=== PATIENT | female | born 1985 | race African-American/Black ===

== ENCOUNTER → 2017-04-25 06:39 | Emergency (ER) | payer MEDICAID ==
[~2017-04-25 06:39] MED LIST: metroNIDAZOLE TAB* 250 MG PO ONE
[2017-04-25 06:51] VITALS: BP 126/82
--- NOTE | 2017-04-25 18:15 | ED ---
Gemini Hong SooYoung, scribed for Dale Allen MD on 04/25/17 at 0818 . GI/ HPI - HPI Summary HPI Summary: A 31 y/o F presents to ED with c/o vaginal discomfort onset two days. Associated sx: vaginal discharge and irritation, dysuria, odorous urine, mild suprapubic abd pain. She states she's had prev yeast infections, but that these sx feel different. LN: 04/07/17. PSHx: Tubal ligation. - History of Current Complaint Chief Complaint: EDVaginalBleeding Time Seen by Provider: 04/25/17 07:48 Stated Complaint: VAG ODOR DISCHARGE Hx Obtained From: Patient Onset/Duration: Started Days Ago, Still Present Timing: Constant Severity: Mild Current Severity: Mild Pain Intensity: 0 - out of 10 Associated Signs and Symptoms: Positive: Discharge - vaginal, Dysuria, Abdominal Pain, Other: - pos: vaginal irritation,odorous urine - Allergy/Home Medications Allergies/Adverse Reactions: Allergies Allergy/AdvReac Type Severity Reaction Status Date / Time Latex AdvReac Rash Verified 04/25/17 06:51 Penicillins AdvReac Hives Verified 04/25/17 06:51 PMH/Surg Hx/FS Hx/Imm Hx Previously Healthy: Yes GI History: Denies: Hx Jaundice Sensory History: Denies: Hx Legally Blind Opthamlomology History: Denies: Hx Legally Blind EENT History: Denies: Hx Deafness Infectious Disease History: No Infectious Disease History: Denies: Traveled Outside the [place] in Last 30 Days - Family History Known Family History: Positive: Hypertension, Diabetes Negative: Cardiac Disease - Social History Occupation: Unemployed - OTHER Lives: With Family Alcohol Use: None Hx Substance Use: No Substance Use Type: Reports: None Hx Tobacco Use: No Smoking Status (MU): Never Smoked Tobacco Review of Systems Positive: Abdominal Pain - mild suprapubic Positive: dysuria, discharge, other - vaginal irritation, odorous urine All Other Systems Reviewed And Are Negative: Yes Physical Exam - Summary Physical Exam Summary: 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 External genitalia: within normal limits. No rashes, lesions or ecchymosis. Speculum exam: vaginal harris with no lesions, masses, or rashes. Cervix normal, but positive for yellow discharge. No CMTs. No adnexal masses. All cultures were collected and send to the lab. VITAL SIGNS: Reviewed. GENERAL: Patient is a well-developed and nourished female who is lying comfortable in the stretcher. Patient is not in any acute respiratory distress. HEAD AND FACE: Normocephalic and atraumatic. EYES: PERRLA, EOMI x 2, No injected conjunctiva. EARS: Hearing grossly intact. Ear canals and tympanic membranes are WNL. MOUTH: Oropharynx within normal limits. NECK: Supple, trachea is midline, no adenopathy, no JVD. CHEST: Symmetric, no tenderness at palpation LUNGS: Clear to auscultation bilaterally. No wheezing or crackles. CVS: RRR, S1 and S2 present, no murmurs or gallops appreciated. ABDOMEN: Soft, non-tender. No signs of distention. Positive bowel sounds. No rebound, no guarding, and no masses palpated. No abdominal bruit or pulsations. EXTREMITIES: FROM in all major joints, no edema, no cyanosis or clubbing. NEURO: Alert and oriented x 3. No acute neurological deficits. Speech is normal. SKIN: Dry and warm Triage Information Reviewed: Yes Vital Signs On Initial Exam: Initial Vitals Temp Pulse Resp BP Pulse Ox 99 F 90 15 126/82 100 04/25/17 06:48 04/25/17 06:48 04/25/17 06:48 04/25/17 06:48 04/25/17 06:48 Vital Signs Reviewed: Yes - Ogden Coma Scale Coma Scale Total: 15 Diagnostics - Vital Signs Vital Signs Temp Pulse Resp BP Pulse Ox 04/25/17 06:48 99 F 90 15 126/82 100 - Laboratory Lab Statement: Any lab studies that have been ordered have been reviewed, and results considered in the medical decision making process. GIGU Course/Dx - Course Course Of Treatment: A 31 y/o F presents to ED with c/o vaginal discomfort onset two days. Associated sx: vaginal discharge and irritation, dysuria, odorous urine, mild suprapubic abd pain. She states she's had prev yeast infections, but that these sx feel different. LN: 04/07/17. PSHx: Tubal ligation. Pelvic exam reveals yellow discharge. She does not have CMT. I did send cultures for gonorrhea and chlamydia, trich and Gardnerella. I offered pt to be treated for STDs, she will wait until she gets results of GC. However, she accepted to be treated for Gardnerella. Was given Flagyl in ED. Will be D/C home with 7 days of Flagyl, f/u with PCP for cultures. I discussed all the findings and test results with the patient. Patient was instructed to return to the emergency room immediately if any of the symptoms return or worsens. They were explained the possibility of an early abdominal pathology which was not detected at this time despite the physical exam and testing. They understand and agree. Abdominal exam before discharge: Soft, NT. No signs of distention. BS present. No rebound no guarding, and no masses palpated. Patient is alert and oriented and hemodynamically stable. Patient is to follow up with primary care physician in the next 2 to 3 days. Patient agree and understands. - Diagnoses Differential Diagnoses - Female: Pelvic Inflammatory Disease, STD Provider Diagnoses: Vaginal discharge, Gardnerella vaginalis infection Discharge - Discharge Plan Condition: Stable Disposition: HOME Prescriptions: Metronidazole [Flagyl 500 MG TAB] 500 mg PO TID #21 tab Patient Education Materials: Metronidazole (By mouth), Vaginal Discharge (ED) Referrals: No Primary Care Phys,NOPCP [Primary Care Provider] - [facility] [place] [Outside] Additional Instructions: Follow up with your primary care provider for culture results. Please return to the ED if you experience new or worsening symptoms. The documentation as recorded by the Gemini carter SooYoung accurately reflects the service I personally performed and the decisions made by me, Dale Allen MD.
== END | disposition home or self-care (01) ==
LOC: ED 06:39
DX: B96.89 Other specified bacterial agents as the cause of diseases classified elsewhere (principal); N89.8 Other specified noninflammatory disorders of vagina
CPT/HCPCS: 87480; 87491; 87510; 87591; 87661; 99282; A9270-GY

== ENCOUNTER 2017-07-03 15:03 | Emergency (ER) | payer MEDICAID, OTHER ==
[2017-07-03 15:28] VITALS: BP 118/75
--- NOTE | 2017-07-03 15:48 | RAD ---
HISTORY: Left hand pain COMPARISONS: None VIEWS: 4, Frontal, lateral, and oblique views of the left hand FINDINGS: BONE DENSITY: Normal. BONES: There is no displaced fracture. JOINTS: There is no arthropathy. ALIGNMENT: There is no dislocation. SOFT TISSUES: Unremarkable. OTHER FINDINGS: None. IMPRESSION: NO ACUTE OSSEOUS INJURY. IF SYMPTOMS PERSIST, RECOMMEND REPEAT IMAGING.
--- NOTE | 2017-07-03 17:12 | UC ---
Dario Hong Nilda, scribed for Reginald Gaviria MD on 07/03/17 at 1539 . Hand/Wrist HPI - HPI Summary HPI Summary: This patient is a 31 year old F [place] [facility] [place] a chief complaint of severe left hand pain since yesterday morning. The patient rates the sharp, throbbing pain 8/10 in severity. Symptoms aggravated by movement, and alleviated by rest. Patient reports limited ROM of left hand. She states her left hand is colder than her right hand. Patient denies recent trauma to hand and abnormal ROM of left wrist. She states she does not have abnormally cold extremities when temperatures become colder. She is right handed. 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 No PMHx blood clots or lymphadenopathy. - History Of Current Complaint Chief Complaint: UCUpperExtremity Stated Complaint: SWOLLEN HAND Time Seen by Provider: 07/03/17 15:26 Hx Obtained From: Patient Hx Last Menstrual Period: 06/18/2017 Onset/Duration: Sudden Onset, Lasting Days, Still Present Severity Currently: Severe Pain Intensity: 8 Pain Scale Used: 0-10 Numeric Character Of Pain: Sharp, Throbbing Aggravating Factor(s): Movement, Flexion, Extension Alleviating Factor(s): Rest Associated Signs And Symptoms: Positive: Other - limited ROM of left hand. She states her left hand is colder than her right hand. Patient denies recent trauma to hand and abnormal ROM of left wrist. - Allergies/Home Medications Allergies/Adverse Reactions: Allergies Allergy/AdvReac Type Severity Reaction Status Date / Time Shellfish Allergy Allergy Hives Verified 07/03/17 15:18 Latex AdvReac Rash Verified 07/03/17 15:18 Penicillins AdvReac Hives Verified 07/03/17 15:18 Home Medications: Home Medications Ibuprofen [Advil] 600 mg PO Q8HR PRN 07/03/17 [History Confirmed 07/03/17] PMH/Surg Hx/FS Hx/Imm Hx Previously Healthy: Yes Cardiovascular History: Other Other Cardiovascular History: negative blood clots - Surgical History Surgical History: Yes Surgery Procedure, Year, and Place: D&C. Tubal ligation 2011 - Family History Known Family History: Positive: Hypertension, Diabetes Negative: Cardiac Disease - Social History Occupation: Employed Full-time Lives: With Family Alcohol Use: None Substance Use Type: None Smoking Status (MU): Never Smoked Tobacco Review of Systems Motor: Decreased ROM - left hand Musculoskeletal: Other: - left hand pain, left hand colder than right; negative recent trauma to hand, abnormal ROM of left wrist All Other Systems Reviewed And Are Negative: Yes Physical Exam Triage Information Reviewed: Yes Vital Signs: Initial Vital Signs Temp 98.6 F 07/03/17 15:19 Pulse 80 07/03/17 15:19 Resp 18 07/03/17 15:19 BP 118/75 07/03/17 15:19 Pulse Ox 100 07/03/17 15:19 Vital Signs Reviewed: Yes - Additional Comments General: well-appearing, no pain distress Skin: warm, color reflects adequate perfusion, dry Head: normal Eyes: EOMI, KYRA ENT: normal Neck: supple, nontender Respiratory: CTA, breath sounds present Cardiovascular: RRR Abdomen: soft, nontender Bowel: present Musculoskeletal: Left hand good radial and ulnar pulse, Wrist and everything proximal is warm and nontender. Left hand cool to touch with capillary refill delayed at all fingers. Pain with ROM of fingers. Neurological: normal, sensory/motor intact, A&O x3 Psychological: affect/mood appropriate Diagnostics - Radiology Hand XR Radiology Interpretation Completed By: Radiologist - Hand XR, per radiologist, reveals NO ACUTE OSSEOUS INJURY. IF SYMPTOMS PERSIST, RECOMMEND REPEAT IMAGING. Dr. Gaviria reviewed this report. Re-Evaluation - Re-Evaluation First Eval Re-Evaluation Time: 16:57 Comment: Reviewed results and treatment plan with patient. Hand/Wrist Course/Dx - Course Course Of Treatment: Allergies noted. Medications reviewed. Hand XR, per radiologist, reveals NO ACUTE OSSEOUS INJURY. IF SYMPTOMS PERSIST, RECOMMEND REPEAT IMAGING. Dr. Gaviira reviewed this report. RADIAL AND ULNAR PULSES PALPATED. NO WRIST PAIN. NEGATIVE TINEL'S. DECREASED CAP REFILL IN ALL FINGERS. NO ARM PAIN. NOT A SMOKER. NO BCPS. SENT TO ED; DISCUSSED WITH DR FENG, FOR FURTHER EVALUATION OF THE LEFT ARM VASCULATURE TO INCLUDE AN "AUE/PVR ". THIS WAS ALL DISCUSSED WITH THE PATIENT. - Differential Dx/Diagnosis Provider Diagnoses: LEFT HAND PAIN WITH DECREASED CIRCULATION. - Physician Notifications Discussed Patient Care With: Reginald Uribe - radiologist Time Discussed With Above Provider: 15:33 Instructed by Provider To: Other - states they cannot do US today. Discharge - Discharge Plan Condition: Stable Disposition: HOME Referrals: No Primary Care Phys,NOPCP [Primary Care Provider] - Additional Instructions: GO TO THE EMERGENCY DEPARTMENT FOR FURTHER EVALUATION OF YOUR LEFT HAND PAIN. The documentation as recorded by the Dario carter Nilda accurately reflects the service I personally performed and the decisions made by me, Reginald Gaviria MD.
== END 2017-07-03 17:06 | disposition home or self-care (01) ==
LOC: UCEAST 15:03
DX: M79.642 Pain in left hand (principal); I99.9 Unspecified disorder of circulatory system
CPT/HCPCS: 99212; G0463

== ENCOUNTER 2017-07-03 17:38 | Emergency (ER) | payer OTHER ==
--- NOTE | 2017-07-03 19:01 | RAD ---
INDICATION: 31-year-old with hand pain COMPARISON: None TECHNIQUE: Duplex interrogation of the left upper extremity was performed FINDINGS: There is wide patency normal velocities and waveforms in the arteries of the upper artery from axilla to the wrist. Additional imaging of pulmonary arch likewise is normal. The individual velocities of these vessels are documented in the PACS system. IMPRESSION: NORMAL STUDY.
[2017-07-03] MEDS ORDERED: NS 0.9% 1000 ML* 1,000 ML IV ONE (19:22)
[2017-07-03 19:50] LABS: Hematocrit 31 % (35-47); Hemoglobin 10.1 g/dl (12.0-16.0); Mean Corpuscular HGB Conc 33 g/dl (31-36); Mean Corpuscular Hemoglobin 22 pg (27-31); Mean Corpuscular Volume 68 fL (80-97); Mean Platelet Volume 7 um3 (7.4-10.4); Red Blood Count 4.58 10^6/ul (4.0-5.4); Red Cell Distribution Width 18 % (10.5-15); White Blood Count 8.1 10^3/ul (3.5-10.8)
[2017-07-03 19:55] LABS: Add Diff/Slide Review? Slide Review Added; Comments Flag Yes
[2017-07-03 20:10] LABS: ALT 12 U/L (7-52); AST 20 U/L (13-39); Albumin 4.6 g/dL (3.2-5.2); Alkaline Phosphatase 55 U/L (34-104); Anion Gap 7 mmol/L (2-11); Blood Urea Nitrogen 17 mg/dL (6-24); CO2 Carbon Dioxide 27 mmol/L (22-32); Calcium 9.4 mg/dL (8.6-10.3); Chloride 103 mmol/L (101-111); EGFR African American 104.7 (>60); EGFR Non-African American 81.4 (>60); Globulin 3.3 g/dL (2-4); Glucose 89 mg/dL (70-100); Potassium 3.4 mmol/L (3.5-5.0); Sodium 137 mmol/L (133-145); Total Protein 7.9 g/dL (6.4-8.9)
[2017-07-03] MEDS ORDERED: Heparin for STEMI(*) 5,000 UNITS/ML 1 ML VIAL IV ONE (20:12)
[2017-07-03] MEDS ORDERED: oxyCODONE/Acetamin 5/325 MG* TAB PO ONE (20:13)
--- NOTE | 2017-07-03 21:47 | ED ---
Wilbert Hong Tiffany, scribed for Lambert Rider on 07/03/17 at 1927 . 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 The pain is rated at 8/10. Symptoms aggravated by touch and movement. Symptoms alleviated by nothing. Patient denies any hand trauma, left arm pain, and right hand pain. - History of Current Complaint Chief Complaint: EDExtremityUpper Stated Complaint: LT HAND INJURY Time Seen by Provider: 07/03/17 19:13 Hx Obtained From: Patient Hx Last Menstrual Period: 06/18/2017 Onset/Duration: Started Days Ago - yesterday morning, Still Present Timing: Constant Severity Currently: Severe - 8/10 Pain Location: Hand - Left hand Aggravating Factor(s): Movement, Flexion Alleviating Factor(s): Nothing Associated Signs & Symptoms: Positive: Negative - hand trauma, left arm pain, and right hand pain - Allergies/Home Medications Allergies/Adverse Reactions: Allergies Allergy/AdvReac Type Severity Reaction Status Date / Time Shellfish Allergy Allergy Hives Verified 07/03/17 17:48 Latex AdvReac Rash Verified 07/03/17 17:48 Penicillins AdvReac Hives Verified 07/03/17 17:48 PMH/Surg Hx/FS Hx/Imm Hx Previously Healthy: Yes GI History: Denies: Hx Jaundice Sensory History: Denies: Hx Legally Blind, Hx Deafness Opthamlomology History: Denies: Hx Legally Blind - Surgical History Surgery Procedure, Year, and Place: D&C. Tubal ligation 2011 Infectious Disease History: No Infectious Disease History: Denies: Traveled Outside the [place] in Last 30 Days - Family History Known Family History: Positive: Hypertension, Diabetes Negative: Cardiac Disease - Social History Alcohol Use: None Hx Substance Use: No Substance Use Type: Reports: None Hx Tobacco Use: No Smoking Status (MU): Never Smoked Tobacco Review of Systems Negative: Fever Positive: Other - left hand pain; NEGATIVE: hand trauma, left arm pain, and right hand pain. All Other Systems Reviewed And Are Negative: Yes Physical Exam - Summary Physical Exam Summary: Appearance: Well appearing, no pain distress Skin: warm, dry, reflects adequate perfusion Head/face: normal Eyes: EOMI, KYRA ENT: normal Neck: supple, non-tender Respiratory: CTA, breath sounds present Cardiovascular: RRR, pulses symmetrical Abdomen: non-tender, soft Bowel: present Musculoskeletal: left hand is pale and cold to touch, delayed capillary refill in left hand Neuro: normal, sensory motor intact, A&Ox3 Triage Information Reviewed: Yes Vital Signs On Initial Exam: Initial Vitals Temp Pulse Resp BP Pulse Ox 98.3 F 82 17 137/58 100 07/03/17 17:45 07/03/17 17:45 07/03/17 17:45 07/03/17 17:45 07/03/17 17:45 Vital Signs Reviewed: Yes Diagnostics - Vital Signs Vital Signs Temp Pulse Resp BP Pulse Ox 07/03/17 17:45 98.3 F 82 17 137/58 100 - Laboratory Lab Results: Lab Results 07/03/17 07/03/17 07/03/17 Range/Units 19:40 19:40 19:40 WBC (3.5-10.8) 10^3/ul RBC (4.0-5.4) 10^6/ul Hgb (12.0-16.0) g/dl Hct (35-47) % MCV (80-97) fL MCH (27-31) pg MCHC (31-36) g/dl RDW (10.5-15) % Plt Count (150-450) 10^3/ul MPV (7.4-10.4) um3 Neut % (Auto) (38-83) % Lymph % (Auto) (25-47) % Appling % (Auto) (1-9) % Eos % (Auto) (0-6) % Baso % (Auto) (0-2) % Absolute Neuts (auto) (1.5-7.7) 10^3/ul Absolute Lymphs (auto) (1.0-4.8) 10^3/ul Absolute Monos (auto) (0-0.8) 10^3/ul Absolute Eos (auto) (0-0.6) 10^3/ul Absolute Basos (auto) (0-0.2) 10^3/ul Absolute Nucleated RBC 10^3/ul Nucleated RBC % INR (Anticoag Therapy) 1.07 H (0.77-1.02) APTT 31.7 (26.0-36.3) seconds Sodium 137 (133-145) mmol/L Potassium 3.4 L (3.5-5.0) mmol/L Chloride 103 (101-111) mmol/L Carbon Dioxide 27 (22-32) mmol/L Anion Gap 7 (2-11) mmol/L BUN 17 (6-24) mg/dL Creatinine 0.81 (0.51-0.95) mg/dL Est GFR ( Amer) 104.7 (>60) Est GFR (Non-Af Amer) 81.4 (>60) BUN/Creatinine Ratio 21.0 H (8-20) Glucose 89 (70-100) mg/dL Calcium 9.4 (8.6-10.3) mg/dL Total Bilirubin 0.30 (0.2-1.0) mg/dL AST 20 (13-39) U/L ALT 12 (7-52) U/L Alkaline Phosphatase 55 (34-104) U/L Total Protein 7.9 (6.4-8.9) g/dL Albumin 4.6 (3.2-5.2) g/dL Globulin 3.3 (2-4) g/dL Albumin/Globulin Ratio 1.4 (1-3) Beta HCG, Quant < 0.60 mIU/mL Blood Type A Positive Antibody Screen Negative 07/03/17 Range/Units 19:40 WBC 8.1 (3.5-10.8) 10^3/ul RBC 4.58 (4.0-5.4) 10^6/ul Hgb 10.1 L (12.0-16.0) g/dl Hct 31 L (35-47) % MCV 68 L (80-97) fL MCH 22 L (27-31) pg MCHC 33 (31-36) g/dl RDW 18 H (10.5-15) % Plt Count 478 H (150-450) 10^3/ul MPV 7 L (7.4-10.4) um3 Neut % (Auto) 53.8 (38-83) % Lymph % (Auto) 37.0 (25-47) % Appling % (Auto) 7.2 (1-9) % Eos % (Auto) 1.5 (0-6) % Baso % (Auto) 0.5 (0-2) % Absolute Neuts (auto) 4.4 (1.5-7.7) 10^3/ul Absolute Lymphs (auto) 3.0 (1.0-4.8) 10^3/ul Absolute Monos (auto) 0.6 (0-0.8) 10^3/ul Absolute Eos (auto) 0.1 (0-0.6) 10^3/ul Absolute Basos (auto) 0 (0-0.2) 10^3/ul Absolute Nucleated RBC 0.01 10^3/ul Nucleated RBC % 0.1 INR (Anticoag Therapy) (0.77-1.02) APTT (26.0-36.3) seconds Sodium (133-145) mmol/L Potassium (3.5-5.0) mmol/L Chloride (101-111) mmol/L Carbon Dioxide (22-32) mmol/L Anion Gap (2-11) mmol/L BUN (6-24) mg/dL Creatinine (0.51-0.95) mg/dL Est GFR ( Amer) (>60) Est GFR (Non-Af Amer) (>60) BUN/Creatinine Ratio (8-20) Glucose (70-100) mg/dL Calcium (8.6-10.3) mg/dL Total Bilirubin (0.2-1.0) mg/dL AST (13-39) U/L ALT (7-52) U/L Alkaline Phosphatase (34-104) U/L Total Protein (6.4-8.9) g/dL Albumin (3.2-5.2) g/dL Globulin (2-4) g/dL Albumin/Globulin Ratio (1-3) Beta HCG, Quant mIU/mL Blood Type Antibody Screen Result Diagrams: 07/03/17 19:40 07/03/17 19:40 Lab Statement: Any lab studies that have been ordered have been reviewed, and results considered in the medical decision making process. 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 Bloodwork obtained. We discussed patient care with radiology who said he cannot do an arteriogram. We talked to Dr. Nava ( vascular surgery at [facility]), who advised to send the patient to their ER. Dr. Whitt (ER physician at [facility]) is aware of the situation and is prepared to see the patient. Patient will be transferred to [facility] for further treatment. The patient is agreeable with this plan. 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 At 20:06, we talked to Dr. Nava (vascular surgery at [facility]), who advised to send the patient to their ER. At 20:14, Dr. Whitt (ER physician at [facility]) is aware of the situation and is prepared to see the patient. - Critical Care Time Critical Care Time: 30-74 min Discharge - Discharge Plan Condition: Fair Disposition: OTHER Discharge Disposition Comment: Transfer to [facility] Referrals: No Primary Care Phys,NOPCP [Primary Care Provider] - The documentation as recorded by the Wilbert carter Tiffany accurately reflects the service I personally performed and the decisions made by , Lambert Rider.
[2017-07-03] MEDS ORDERED: Ondansetron INJ* 2 MG/ML VIAL IV ONE (22:23)
[2017-07-03] MEDS ORDERED: Ondansetron INJ* 2 MG/ML VIAL ONE (22:25)
[2017-07-03 22:42] VITALS: BP 129/81
== END 2017-07-03 22:50 ==
LOC: ED 17:38
DX: I74.2 Embolism and thrombosis of arteries of the upper extremities (principal); Z32.02 Encounter for pregnancy test, result negative; Z88.0 Allergy status to penicillin; Z91.040 Latex allergy status
CPT/HCPCS: 36415; 80053; 84702; 85025; 85610; 85730; 86850; 86900; 86901; 93005; 96361; 96374; 96375; 99284; A9270-GY; J1644; J2405

== ENCOUNTER 2017-07-12 11:29 | Emergency (ER) | payer MEDICAID, OTHER ==
[2017-07-12] MEDS ORDERED: Ketorolac INJ* 60 MG/2 ML VIAL IM ONE (11:51)
[2017-07-12 12:09] VITALS: BP 110/68
--- NOTE | 2017-07-12 12:11 | ED ---
Throat Pain/Nasal Congestion - HPI Summary HPI Summary: Patient presents to the ED with left canine dental pain for 1 week which has been worsening. Fracture of the tooth occurred a long while ago. Denies trismus , drooling or dysphagia. Pain is 8/10, sharp and throbbing. Denies airway compromise or SOB. Denies ear pain, eye pain, blurry vision or double vision. Otherwise healthy. Pain is worse with chewing and cold drinks, better with aleve but only improves slightly. Patient denies dental care for several years stating she is afraid of the dentist. - History of Current Complaint Chief Complaint: EDDentalPain Time Seen by Provider: 07/12/17 11:35 Hx Obtained From: Patient Onset/Duration: Gradual Onset Severity: Moderate Associated Signs And Symptoms: Positive: Negative - Epiglottits Risk Factors Epiglottis Risk Factors: Negative - Allergies/Home Medications Allergies/Adverse Reactions: Allergies Allergy/AdvReac Type Severity Reaction Status Date / Time Shellfish Allergy Allergy Hives Verified 07/03/17 17:48 Latex AdvReac Rash Verified 07/03/17 17:48 Penicillins AdvReac Hives Verified 07/03/17 17:48 PMH/Surg Hx/FS Hx/Imm Hx Previously Healthy: Yes GI History: Denies: Hx Jaundice Sensory History: Denies: Hx Legally Blind, Hx Deafness Opthamlomology History: Denies: Hx Legally Blind - Surgical History Surgery Procedure, Year, and Place: D&C. Tubal ligation 2011 - Immunization History Hx Pertussis Vaccination: No Immunizations Up to Date: Unable to Obtain/Confirm Infectious Disease History: No Infectious Disease History: Denies: Traveled Outside the [place] in Last 30 Days - Family History Known Family History: Positive: Hypertension, Diabetes Negative: Cardiac Disease - Social History Occupation: Employed Full-time Lives: With Family Alcohol Use: None Hx Substance Use: No Substance Use Type: Reports: None Hx Tobacco Use: No Smoking Status (MU): Never Smoked Tobacco Review of Systems Constitutional: Negative Negative: Fever, Chills, Fatigue Eyes: Negative Positive: Dental Pain Cardiovascular: Negative Genitourinary: Negative Positive: no symptoms reported, see HPI Musculoskeletal: Negative Neurological: Negative All Other Systems Reviewed And Are Negative: Yes Physical Exam Triage Information Reviewed: Yes Vital Signs On Initial Exam: Initial Vitals Temp Pulse Resp BP Pulse Ox 98.1 F 79 18 114/69 100 07/12/17 11:30 07/12/17 11:30 07/12/17 11:30 07/12/17 11:30 07/12/17 11:30 Vital Signs Reviewed: Yes Appearance: Positive: Well-Appearing, Well-Nourished Skin: Positive: Warm, Skin Color Reflects Adequate Perfusion Head/Face: Positive: Normal Head/Face Inspection Eyes: Positive: EOMI, KYRA, Conjunctiva Clear Dental: Positive: Percussion Tenderness @ - throughout R mandible, Gross Decay/ Caries @ - throughout entire mouth, Dental Fracture @ - several teeth, Abscess @ - right upper canine with slight discoloration Neck: Positive: Supple, Nontender, No Lymphadenopathy Cardiovascular: Positive: RRR, Pulses are Symmetrical in both Upper and Lower Extremities Musculoskeletal: Positive: Normal, Strength/ROM Intact Neurological: Positive: Speech Normal Psychiatric: Positive: Normal - [place] Coma Scale Coma Scale Total: 15 Diagnostics - Vital Signs Vital Signs Temp Pulse Resp BP Pulse Ox 07/12/17 11:30 98.1 F 79 18 114/69 100 - Laboratory Lab Statement: Any lab studies that have been ordered have been reviewed, and results considered in the medical decision making process. EENT Course/Dx - Course Course Of Treatment: . Erythema at site of pain. No drainage from area. Several dental caries, cavities, crowding and broken teeth throughout. Pain on palpation over mandible. No TMJ tenderness. No pain with opening and closing mouth. Poor dental hygiene and outpatient dental care. Will treat for possible dental infection/abscess based on symptoms of pain and radiation to jaw and ear. No allergies. Will treat with Clindamycin d/t pen allergy. She is given toradol in the ED IM and given tramadol as rx. Patient to follow up immediately with dentist. Dental referrals given. - Differential Diagnoses Differential Diagnoses: Dental Abscess, Dental Caries - Diagnoses Provider Diagnoses: Dental caries, Dental infection Discharge - Discharge Plan Condition: Stable Disposition: HOME Prescriptions: Clindamycin Cap(NF) [Clindamycin Cap 300 mg Cap(NF)] 300 mg PO Q6H #20 cap traMADol TAB* [Ultram*] 50 mg PO Q8H PRN #15 tab MDD 3 PRN Reason: Pain Patient Education Materials: Dental Abscess (ED) Referrals: No Primary Care Phys,NOPCP [Primary Care Provider] - Additional Instructions: You have been diagnosed with dental pain with possible infection: Antibiotics as prescribed to you. Clindamcyin four times daily for 5 days. To minimize the potential for gastrointestinal intolerance, Clindamycin should be taken at the start of a meal. If you have any questions about your medication, please contact us or ask your pharmacist. Salt water rinses several times per day will improve healing time. Ibuprofen 600mg three times daily with meals for discomfort. On opposite schedule of ibuprofen, take the tramadol 50mg as needed for breakthrough pain Ambesol for comfort Follow up with a dentist for routine care to prevent recurrence of infections. If fever, worsening pain or swelling develops, see your PCP, dentist or come back to the Emergency Department.
== END 2017-07-12 12:08 | disposition home or self-care (01) ==
LOC: ED 11:29
DX: K08.89 Other specified disorders of teeth and supporting structures (principal); B99.9 Unspecified infectious disease
CPT/HCPCS: 96372; 99281; J1885

== ENCOUNTER 2017-12-23 13:27 | Emergency (ER) | payer MEDICAID ==
[2017-12-23 15:38] LABS: Urine Appearance Clear; Urine Blood Negative (Negative); Urine Color Yellow; Urine Ketones Trace (Negative); Urine Protein Negative (Negative); Urine Specific Gravity 1.025 (1.010-1.030); Urine Urobilinogen Negative (Negative)
[2017-12-23] MEDS ORDERED: Azithromycin TAB* 250 MG PO ONE (16:04)
[2017-12-23] MEDS ORDERED: cefTRIAXone VIAL(*) 250 MG VIAL IM ONE (16:04)
[2017-12-23] MEDS ORDERED: Lidocaine 1%* 5 ML VIAL ONE (16:13)
--- NOTE | 2017-12-23 16:38 | ED ---
GI/ HPI - HPI Summary HPI Summary: Patient is a 32-year-old female who presents emergency department for vaginal irritation 3-4 days. Patient states she has a new sexual partner and has been sexually active without using protection. Patient states she feels as though she has irritation to the outer vaginal area. Does have a history of UTIs and notes some irritation with urination. Otherwise denies fever, chills, abdominal pain, flank pain. Symptoms are mild in severity. No current modifying factors. - History of Current Complaint Chief Complaint: EDOBProblems Time Seen by Provider: 12/23/17 15:01 Stated Complaint: VAG IRRITATION Hx Last Menstrual Period: 06/18/2017 Pain Intensity: 8 - Allergy/Home Medications Allergies/Adverse Reactions: Allergies Allergy/AdvReac Type Severity Reaction Status Date / Time latex Allergy Rash Verified 12/23/17 13:34 Penicillins Allergy Hives Verified 12/23/17 13:34 shellfish derived Allergy Hives Verified 12/23/17 13:34 Home Medications: Home Medications Albuterol HFA INHALER* [Ventolin HFA Inhaler*] 2 puff INH Q4H PRN 12/23/17 [ History Confirmed 12/23/17] PMH/Surg Hx/FS Hx/Imm Hx Previously Healthy: Yes GI History: Denies: Hx Jaundice Sensory History: Denies: Hx Legally Blind Opthamlomology History: Denies: Hx Legally Blind - Surgical History Surgery Procedure, Year, and Place: D&C. Tubal ligation 2011 Infectious Disease History: No Infectious Disease History: Denies: Traveled Outside the [place] in Last 30 Days - Family History Known Family History: Positive: Hypertension, Diabetes Negative: Cardiac Disease - Social History Lives: With Family Alcohol Use: None Hx Substance Use: No Substance Use Type: Reports: None Hx Tobacco Use: No Smoking Status (MU): Never Smoked Tobacco Review of Systems Constitutional: Negative Negative: Fever, Chills Gastrointestinal: Negative Positive: Nausea. Negative: Abdominal Pain, Vomiting Positive: dysuria, pain. Negative: flank pain All Other Systems Reviewed And Are Negative: Yes Physical Exam Triage Information Reviewed: Yes Vital Signs On Initial Exam: Initial Vitals Temp Pulse Resp BP Pulse Ox 97.6 F 79 16 125/68 100 12/23/17 13:34 12/23/17 13:34 12/23/17 13:34 12/23/17 13:34 12/23/17 13:34 Vital Signs Reviewed: Yes Appearance: Positive: Well-Appearing - Patient sitting in bed in no acute distress. Head/Face: Positive: Normal Head/Face Inspection Eyes: Positive: Normal Neck: Positive: Supple Abdomen Description: Positive: Nontender, Soft Pelvic Exam: Positive: Other - Exam performed with patient's nurse present in room, Rolanda. External genitalia is unremarkable without erythema, edema or lesions. Speculum exam reveals a mild yellowish discharge from the cervix. No lesions. No cervical motion tenderness. Cervical cultures were obtained. Neurological: Positive: Normal, CN Intact II-III Psychiatric: Positive: Affect/Mood Appropriate Diagnostics - Vital Signs Vital Signs Temp Pulse Resp BP Pulse Ox 12/23/17 13:34 97.6 F 79 16 125/68 100 - Laboratory Lab Results: Lab Results 12/23/17 Range/Units 15:20 Urine Color Yellow Urine Appearance Clear Urine pH 5.0 (5-9) Ur Specific [place] 1.025 (1.010-1.030) Urine Protein Negative (Negative) Urine Ketones Trace A (Negative) Urine Blood Negative (Negative) Urine Nitrate Negative (Negative) Urine Bilirubin Negative (Negative) Urine Urobilinogen Negative (Negative) Ur Leukocyte Esterase 3+ A (Negative) Urine WBC (Auto) 3+(>20/hpf) A (Absent) Urine RBC (Auto) Trace(0-2/hpf) (Absent) Ur Squamous Epith Cells Present A (Absent) Urine Bacteria Absent (Absent) Hyaline Casts Present A (Absent) Urine Glucose Negative (Negative) Lab Statement: Any lab studies that have been ordered have been reviewed, and results considered in the medical decision making process. GIGU Course/Dx - Course Course Of Treatment: Patient presenting for vaginal irritation after and protected intercourse. Urinalysis show elevated leukocytes and WBCs were discontinued with epithelial cells, no bacteria. We'll send urine for culture. Based on patient's exam suspect vaginitis. Patient would like prophylactically treated for gonorrhea and chlamydia and was given Rocephin and Zithromax. We'll place him a 7 day course of Flagyl. Advised to call the [facility] referral [place] to establish a family doctor. We'll call if cultures are positive. Advised to avoid sexual activity until symptoms resolve and advised wheezy sexual protection. Pt. to return to the ER if symptoms change or worsen. Patient understands and agrees with plan. - Diagnoses Differential Diagnoses - Female: Herpes, STD, Vaginitis Provider Diagnoses: Vaginitis Discharge - Sign-Out/Discharge Documenting (check all that apply): Discharge/Admit/Transfer - Discharge Plan Condition: Good Disposition: HOME Prescriptions: metroNIDAZOLE [Flagyl] 500 mg PO Q12H 7 Days #14 tablet Patient Education Materials: Bacterial Vaginosis (ED) Referrals: [facility] [place] [facility] [Outside] No Primary Care Phys,NOPCP [Primary Care Provider] - Additional Instructions: Call the physician referral line to establish a PCP Take medication as directed Avoid sexual activity until symptoms resolve Always use sexual protection Will call you if cultures come back positive Return to ER if symptoms change or worsen - Billing Disposition and Condition Condition: GOOD Disposition: Home
[2017-12-23 17:01] VITALS: BP 123/78
== END 2017-12-23 17:02 | disposition home or self-care (01) ==
LOC: ED 13:27
DX: N76.0 Acute vaginitis (principal); Z88.0 Allergy status to penicillin
CPT/HCPCS: 36415; 81003; 81015; 86703; 87086; 87480; 87491; 87510; 87591; 87661; 96372; 99282; A9270-GY; J0696

== ENCOUNTER 2018-02-06 15:08 | Emergency (ER) | payer MEDICAID ==
[2018-02-06] MEDS ORDERED: metroNIDAZOLE TAB* 250 MG PO ONE (19:02)
--- NOTE | 2018-02-06 19:02 | ED ---
GI/ HPI - HPI Summary HPI Summary: 32 female presents with vaginal discharge for the past 2 days. States she has history of BV. She states that it feels the dame. States that the odor is what is bothering him the most. States she is itchy. She denies any history of STDs. She has her tubes tied. She denies abdominal pain. No pain with urination. No nausea vomiting. No hematuria. No urgency or frequency. No diarrhea constipation. no previous belly surgeries. 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 - History of Current Complaint Chief Complaint: EDOBProblems Time Seen by Provider: 02/06/18 18:34 Stated Complaint: VAGINAL IRRATATION/ODOR Hx Last Menstrual Period: 06/18/2017 Pain Intensity: 2 - Allergy/Home Medications Allergies/Adverse Reactions: Allergies Allergy/AdvReac Type Severity Reaction Status Date / Time latex Allergy Rash Verified 12/23/17 13:34 Penicillins Allergy Hives Verified 12/23/17 13:34 shellfish derived Allergy Hives Verified 12/23/17 13:34 PMH/Surg Hx/FS Hx/Imm Hx Endocrine/Hematology History: Denies: Hx Anticoagulant Therapy Respiratory History: Denies: Hx Asthma GI History: Denies: Hx Jaundice Sensory History: Denies: Hx Legally Blind Opthamlomology History: Denies: Hx Legally Blind - Surgical History Surgery Procedure, Year, and Place: D&C. Tubal ligation 2011 - Immunization History Immunizations Up to Date: Yes Infectious Disease History: No Infectious Disease History: Denies: Traveled Outside the [place] in Last 30 Days - Family History Known Family History: Positive: Hypertension, Diabetes Negative: Cardiac Disease - Social History Alcohol Use: None Hx Substance Use: No Substance Use Type: Reports: None Hx Tobacco Use: No Smoking Status (MU): Never Smoked Tobacco Review of Systems Negative: Fever Negative: Chest Pain Negative: Shortness Of Breath Positive: Other - vaginal discharge. Negative: Abdominal Pain, Vomiting All Other Systems Reviewed And Are Negative: Yes Physical Exam Triage Information Reviewed: Yes Vital Signs On Initial Exam: Initial Vitals Temp Pulse Resp BP Pulse Ox 98.9 F 83 16 132/81 98 02/06/18 15:13 02/06/18 15:13 02/06/18 15:13 02/06/18 15:13 02/06/18 15:13 Vital Signs Reviewed: Yes Appearance: Positive: Well-Appearing Skin: Positive: Warm, Dry Head/Face: Positive: Normal Head/Face Inspection Eyes: Positive: Normal, Conjunctiva Clear ENT: Positive: Pharynx normal Respiratory/Lung Sounds: Positive: Clear to Auscultation, Breath Sounds Present Cardiovascular: Positive: Normal, RRR Abdomen Description: Positive: Nontender, Soft Bowel Sounds: Positive: Present Pelvic Exam: Positive: External Exam Normal, Bimanual Exam Normal, No Cerv. Motion Tender, Discharge - white grayish with odor Musculoskeletal: Positive: Normal Neurological: Positive: Normal Psychiatric: Positive: Normal Diagnostics - Vital Signs Vital Signs Temp Pulse Resp BP Pulse Ox 02/06/18 15:13 98.9 F 83 16 132/81 98 - Laboratory Lab Statement: Any lab studies that have been ordered have been reviewed, and results considered in the medical decision making process. GIGU Course/Dx - Course Course Of Treatment: 32 female presents with vaginal discharge for the past 2 days. States she has history of BV. She states that it feels the dame. States that the odor is what is bothering him the most. States she is itchy. She denies any history of STDs. She has her tubes tied. She denies abdominal pain. No pain with urination. No nausea vomiting. No hematuria. No urgency or frequency. No diarrhea constipation. no previous belly surgeries. On exam greatest discharge with odor. No cervical motion tenderness. Abdomen soft nontender. We'll treat presumptively as BV with Flagyl. We'll wait for final cultures. Patient understands and agrees the plan. - Diagnoses Differential Diagnoses - Female: Candidiasis, STD, Urinary Tract Infection Provider Diagnoses: Vaginal discharge Discharge - Sign-Out/Discharge Documenting (check all that apply): Patient Departure - Discharge Plan Condition: Good Disposition: HOME Prescriptions: metroNIDAZOLE [Flagyl 500 MG TAB] 500 mg PO BID #13 tab Patient Education Materials: Bacterial Vaginosis (ED) Referrals: [facility] [place] [facility] [Outside] Cl Lanza MD [Medical Doctor] - Additional Instructions: Take flagyl twice a day for 7 days, avoid alcohol Take Tylenol or ibuprofen for fever and pain every 6 hours Follow up with primary care physician Return to ED if develop any new or worsening symptomswill treat for BV at this time - Billing Disposition and Condition Condition: GOOD Disposition: Home
[2018-02-06 19:25] VITALS: BP 142/81
[2018-02-06 19:29] LABS: Urine Appearance Cloudy; Urine Blood Negative (Negative); Urine Color Amber; Urine Ketones Negative (Negative); Urine Protein Negative (Negative); Urine Red Blood Cell 2+(6-10/hpf) (Absent); Urine Specific Gravity 1.034 (1.010-1.030); Urine Urobilinogen Negative (Negative); Urine White Blood Cell 1+(6-10/hpf) (Absent)
--- NOTE | 2018-02-08 09:01 | PN ---
Progress Note - Progress Note Date of Service: 02/06/18 Note: Pt. seen in ED 02/06 and dx with BV. Started on flagyl. Vaginal culture today is growing gardnerella. No change in treatment plan needed.
--- NOTE | 2018-02-10 06:37 | PN ---
Progress Note - Progress Note Date of Service: 02/10/18 Note: urine culture grew normal lorena, strep group B, and gardnerella are normal. Strep group B 1-10,000 which is not significant culture so will not treat. Patient placed on Flagyl so no further action required about Gardnerella.
== END 2018-02-06 19:23 | disposition home or self-care (01) ==
LOC: ED 15:08
DX: N89.8 Other specified noninflammatory disorders of vagina (principal); Z98.51 Tubal ligation status; Z88.0 Allergy status to penicillin
CPT/HCPCS: 36415; 81003; 81015; 86703; 87077; 87086; 87480; 87491; 87510; 87591; 87661; 99282; A9270-GY

== ENCOUNTER 2018-03-16 16:19 | Emergency (ER) | payer MEDICAID, OTHER ==
--- NOTE | 2018-03-16 18:22 | ED ---
GI/ HPI - HPI Summary HPI Summary: 32-year-old female presents with vaginal discharge for the past couple days. She states that this feels similar to when she has had bv. States that has itchy vaginal discharge with odor. She denies any chance of STD. She denies any chance is . no Nausea or vomiting. no abd pain. She admits to dysuria. No flank pain. No fevers. She states it also feels like she has UTI. - History of Current Complaint Chief Complaint: EDUrogenitalProblems Time Seen by Provider: 03/16/18 17:36 Stated Complaint: DISCOMFORT Hx Last Menstrual Period: 06/18/2017 Pain Intensity: 0 - Allergy/Home Medications Allergies/Adverse Reactions: Allergies Allergy/AdvReac Type Severity Reaction Status Date / Time latex Allergy Rash Verified 03/16/18 16:42 Penicillins Allergy Hives Verified 03/16/18 16:42 shellfish derived Allergy Hives Verified 03/16/18 16:42 PMH/Surg Hx/FS Hx/Imm Hx Endocrine/Hematology History: Denies: Hx Anticoagulant Therapy Respiratory History: Denies: Hx Asthma GI History: Denies: Hx Jaundice Sensory History: Denies: Hx Legally Blind Opthamlomology History: Denies: Hx Legally Blind - Surgical History Surgery Procedure, Year, and Place: D&C. Tubal ligation 2011 Infectious Disease History: No Infectious Disease History: Denies: Traveled Outside the [place] in Last 30 Days - Family History Known Family History: Positive: Hypertension, Diabetes Negative: Cardiac Disease - Social History Alcohol Use: None Hx Substance Use: No Substance Use Type: Reports: None Hx Tobacco Use: No Smoking Status (MU): Never Smoked Tobacco Review of Systems Negative: Fever Negative: Chest Pain Negative: Shortness Of Breath Positive: Other - vaginal discharge All Other Systems Reviewed And Are Negative: Yes Physical Exam Triage Information Reviewed: Yes Vital Signs On Initial Exam: Initial Vitals Temp Pulse Resp BP Pulse Ox 98.4 F 86 16 126/65 100 03/16/18 16:39 03/16/18 16:39 03/16/18 16:39 03/16/18 16:39 03/16/18 16:39 Vital Signs Reviewed: Yes Appearance: Positive: Well-Appearing Skin: Positive: Warm, Dry Head/Face: Positive: Normal Head/Face Inspection Eyes: Positive: Normal, Conjunctiva Clear ENT: Positive: Pharynx normal Respiratory/Lung Sounds: Positive: Clear to Auscultation, Breath Sounds Present Cardiovascular: Positive: Normal, RRR Abdomen Description: Positive: Nontender, Soft Bowel Sounds: Positive: Present Pelvic Exam: Positive: External Exam Normal, No Cerv. Motion Tender - white, Discharge Musculoskeletal: Positive: Normal Neurological: Positive: Normal Psychiatric: Positive: Normal Diagnostics - Vital Signs Vital Signs Temp Pulse Resp BP Pulse Ox 03/16/18 16:39 98.4 F 86 16 126/65 100 - Laboratory Lab Statement: Any lab studies that have been ordered have been reviewed, and results considered in the medical decision making process. GIGU Course/Dx - Course Course Of Treatment: 32-year-old female presents with vaginal discharge for the past couple days. She states that this feels similar to when she has had bv. States that has itchy vaginal discharge with odor. She denies any chance of STD. She denies any chance is . no Nausea or vomiting. no abd pain. She admits to dysuria. No flank pain. No fevers. She states it also feels like she has UTI. On exam nontender abdomen. White vaginal discharge with odor present. Urine shows a UTI. Also yeast. We'll treat the yeast with Diflucan. We'll give macrobid for UTI. also flagyl for potential bc. Patient understands agrees with plan. - Diagnoses Differential Diagnoses - Female: Pelvic Inflammatory Disease, STD, Urinary Tract Infection Provider Diagnoses: Vaginal discharge, UTI (urinary tract infection) Discharge - Sign-Out/Discharge Documenting (check all that apply): Patient Departure - Discharge Plan Condition: Good Disposition: HOME Prescriptions: metroNIDAZOLE [Flagyl 500 MG TAB] 500 mg PO BID #14 tab Nitrofurantoin Monohyd/M-Cryst [Macrobid 100 mg Capsule] 100 mg PO BID #14 cap Patient Education Materials: Bacterial Vaginosis (ED) Referrals: No Primary Care Phys,NOPCP [Primary Care Provider] - Additional Instructions: Take flagyl twice a day for 7 days, avoid alcohol Take Tylenol or ibuprofen for pain every 6 hours follow up with employment specialist Return to ED if develop any new or worsening symptoms - Billing Disposition and Condition Condition: GOOD Disposition: Home
[2018-03-16 19:07] VITALS: BP 102/64
[2018-03-16 19:26] LABS: Urine Appearance Cloudy; Urine Blood Negative (Negative); Urine Color Yellow; Urine Ketones Trace (Negative); Urine Protein 1+(30 mg/dL) (Negative); Urine Red Blood Cell 2+(6-10/hpf) (Absent); Urine Specific Gravity 1.025 (1.010-1.030); Urine Urobilinogen Negative (Negative); Urine White Blood Cell 3+(>20/hpf) (Absent)
[2018-03-16] MEDS ORDERED: Fluconazole 150 MG (NF) 150 MG TAB PO ONE (19:39)
[2018-03-16] MEDS ORDERED: Fluconazole 100 MG TAB* TAB PO ONE (20:00)
--- NOTE | 2018-03-18 08:19 | PN ---
Progress Note - Progress Note Date of Service: 03/16/18 Note: Gardnerella positive, negative Kathrin Patient placed on metronidazole prior to discharge This is appropriate treatment Nothing further this time
--- NOTE | 2018-03-19 11:22 | PN ---
Progress Note - Progress Note Date of Service: 03/16/18 Note: Patient's urine culture final grew Citrobacter Koseri Patient placed on Macrobid prior to discharge Sensitive to organism Nothing further at this time
== END 2018-03-16 19:04 | disposition home or self-care (01) ==
LOC: ED 16:19
DX: N89.8 Other specified noninflammatory disorders of vagina (principal); N39.0 Urinary tract infection, site not specified; B96.89 Other specified bacterial agents as the cause of diseases classified elsewhere; Z91.040 Latex allergy status; Z88.0 Allergy status to penicillin; Z91.013 Allergy to seafood
CPT/HCPCS: 81003; 81015; 87077; 87086; 87186; 87480; 87491; 87510; 87591; 87661; 99282

== ENCOUNTER 2018-04-13 17:11 | Emergency (ER) | payer MEDICAID, OTHER ==
[2018-04-13 19:38] LABS: ABS Basophils 0 10^3/ul (0-0.2); ABS Eosinophils 0 10^3/ul (0-0.6); ABS Lymphocytes 2.2 10^3/ul (1.0-4.8); ABS Monocytes 0.4 10^3/ul (0-0.8); ABS Neutrophils 2.5 10^3/ul (1.5-7.7); ABS Nucleated RBC 0 10^3/ul; Eosinophil % 0.7 % (0-6); Hematocrit 29 % (35-47); Hemoglobin 9.6 g/dl (12.0-16.0); Lymphocyte % 42.6 % (25-47); Mean Corpuscular HGB Conc 33 g/dl (31-36); Mean Corpuscular Hemoglobin 23 pg (27-31); Mean Corpuscular Volume 69 fL (80-97); Mean Platelet Volume 7.3 um3 (7.4-10.4); Nucleated Red Blood Cells % 0.1; Platelet Count 437 10^3/ul (150-450); Red Blood Count 4.27 10^6/ul (4.00-5.40); Red Cell Distribution Width 19 % (10.5-15); White Blood Count 5.2 10^3/ul (3.5-10.8)
[2018-04-13] MEDS ORDERED: Acetaminophen TAB* 325 MG PO ONE (19:41)
[2018-04-13] MEDS ORDERED: Acetaminophen TAB* 325 MG ONE (19:43)
[2018-04-13 19:50] LABS: EGFR Non-African American 97.4 (>60)
[2018-04-13 20:01] LABS: Urine Appearance Cloudy; Urine Blood Negative (Negative); Urine Color Yellow; Urine Ketones Trace (Negative); Urine Protein Negative (Negative); Urine Urobilinogen Negative (Negative)
[2018-04-13 20:12] LABS: Urine Red Blood Cell Trace(0-2/hpf) (Absent); Urine White Blood Cell Trace(0-5/hpf) (Absent)
--- NOTE | 2018-04-13 20:54 | ED ---
HPI Chest Pain - HPI Summary HPI Summary: Patient complains of mild sternal and left side CP, with palpitations 3 days. States history of same one year ago. Palpitations and CP are intermittent, random onset, simultaneous, lasts a couple minutes and then resolves. Occurs several times a day. Denies SOB, fever, cough, sore throat, N/V/D, abdominal pain, change in urine, change in BM. Denies recent decrease in endurance. Medical History is asthma. Negative family cardiac history. Nonsmoker, denies EtOH or recreational drug use. Denies - History of Current Complaint Chief Complaint: EDChestPainROMI Time Seen by Provider: 04/13/18 17:36 Hx Obtained From: Patient Hx Last Menstrual Period: 06/18/2017 Onset/Duration: Started Days Ago Timing: Intermittent, Lasting Minutes Initial Severity: Moderate Current Severity: Moderate Pain Intensity: 7 Pain Scale Used: 0-10 Numeric Chest Pain Location: Mid Sternal, Left Anterior Chest Pain Radiates: No Character: Tightness Aggravating Factor(s): Nothing Alleviating Factor(s): Nothing Associated Signs and Symptoms: Positive: Chest Pain, Palpitations - Allergy/Home Medications Allergies/Adverse Reactions: Allergies Allergy/AdvReac Type Severity Reaction Status Date / Time latex Allergy Rash Verified 04/13/18 17:21 Penicillins Allergy Hives Verified 04/13/18 17:21 shellfish derived Allergy Hives Verified 04/13/18 17:21 PMH/Surg Hx/FS Hx/Imm Hx Endocrine/Hematology History: Denies: Hx Anticoagulant Therapy Respiratory History: Denies: Hx Asthma GI History: Denies: Hx Jaundice History: Denies: Hx Dialysis Sensory History: Denies: Hx Legally Blind Opthamlomology History: Denies: Hx Legally Blind Neurological History: Denies: Hx CVA - Surgical History Surgery Procedure, Year, and Place: D&C. Tubal ligation 2011 Infectious Disease History: No Infectious Disease History: Denies: Traveled Outside the [place] in Last 30 Days - Family History Known Family History: Positive: Hypertension, Diabetes Negative: Cardiac Disease - Social History Alcohol Use: None Hx Substance Use: No Substance Use Type: Reports: None Hx Tobacco Use: No Smoking Status (MU): Never Smoked Tobacco Review of Systems Constitutional: Negative Eyes: Negative ENT: Negative Positive: Palpitations, Chest Pain Respiratory: Negative Gastrointestinal: Negative Genitourinary: Negative Musculoskeletal: Negative Skin: Negative Neurological: Negative Psychological: Normal All Other Systems Reviewed And Are Negative: Yes Physical Exam - Summary Physical Exam Summary: Chest nontender to palpation. Nonreproducible. Triage Information Reviewed: Yes Vital Signs On Initial Exam: Initial Vitals Temp Pulse Resp BP Pulse Ox 97.7 F 73 16 135/69 100 04/13/18 17:17 04/13/18 17:17 04/13/18 17:17 04/13/18 17:17 04/13/18 17:17 Vital Signs Reviewed: Yes Appearance: Positive: Well-Appearing Skin: Positive: Warm Head/Face: Positive: Normal Head/Face Inspection Eyes: Positive: Normal Neck: Positive: Supple Respiratory/Lung Sounds: Positive: Clear to Auscultation Cardiovascular: Positive: Normal Abdomen Description: Positive: Nontender Musculoskeletal: Positive: Normal Neurological: Positive: Normal Psychiatric: Positive: Normal AVPU Assessment: Alert - [place] Coma Scale Best Eye Response: 4 - Spontaneous Best Motor Response: 6 - Obeys Commands Best Verbal Response: 5 - Oriented Coma Scale Total: 15 Diagnostics - Vital Signs Vital Signs Temp Pulse Resp BP Pulse Ox 04/13/18 20:00 73 14 124/77 100 04/13/18 19:30 15 131/81 04/13/18 19:03 17 103/74 04/13/18 19:00 15 04/13/18 18:30 14 132/69 04/13/18 18:19 97 04/13/18 18:00 17 133/79 04/13/18 17:30 15 142/83 04/13/18 17:17 97.7 F 73 16 135/69 100 - Laboratory Lab Results: Lab Results 04/13/18 04/13/18 04/13/18 Range/Units 18:57 18:57 19:53 WBC 5.2 (3.5-10.8) 10^3/ul RBC 4.27 (4.00-5.40) 10^6/ul Hgb 9.6 L (12.0-16.0) g/dl Hct 29 L (35-47) % MCV 69 L (80-97) fL MCH 23 L (27-31) pg MCHC 33 (31-36) g/dl RDW 19 H (10.5-15) % Plt Count 437 (150-450) 10^3/ul MPV 7.3 L (7.4-10.4) um3 Neut % (Auto) 47.9 (38-83) % Lymph % (Auto) 42.6 (25-47) % [place] % (Auto) 8.3 H (0-7) % Eos % (Auto) 0.7 (0-6) % Baso % (Auto) 0.5 (0-2) % Absolute Neuts (auto) 2.5 (1.5-7.7) 10^3/ul Absolute Lymphs (auto) 2.2 (1.0-4.8) 10^3/ul Absolute Monos (auto) 0.4 (0-0.8) 10^3/ul Absolute Eos (auto) 0 (0-0.6) 10^3/ul Absolute Basos (auto) 0 (0-0.2) 10^3/ul Absolute Nucleated RBC 0 10^3/ul Nucleated RBC % 0.1 Sodium 138 (135-145) mmol/L Potassium 3.9 (3.5-5.0) mmol/L Chloride 106 (101-111) mmol/L Carbon Dioxide 26 (22-32) mmol/L Anion Gap 6 (2-11) mmol/L BUN 7 (6-24) mg/dL Creatinine 0.69 (0.51-0.95) mg/dL Est GFR ( Amer) 117.8 (>60) Est GFR (Non-Af Amer) 97.4 (>60) BUN/Creatinine Ratio 10.1 (8-20) Glucose 91 (70-100) mg/dL Calcium 9.1 (8.6-10.3) mg/dL Total Bilirubin 0.30 (0.2-1.0) mg/dL AST 16 (13-39) U/L ALT 11 (7-52) U/L Alkaline Phosphatase 45 (34-104) U/L Troponin I 0.00 (<0.04) ng/mL C-Reactive Protein < 1.00 (<8.01) mg/L Total Protein 7.0 (6.4-8.9) g/dL Albumin 4.2 (3.2-5.2) g/dL Globulin 2.8 (2-4) g/dL Albumin/Globulin Ratio 1.5 (1-3) Beta HCG, Quant < 0.60 mIU/mL Urine Color Yellow Urine Appearance Cloudy Urine pH 6.0 (5-9) Ur Specific [place] 1.020 (1.010-1.030) Urine Protein Negative (Negative) Urine Ketones Trace A (Negative) Urine Blood Negative (Negative) Urine Nitrate Negative (Negative) Urine Bilirubin Negative (Negative) Urine Urobilinogen Negative (Negative) Ur Leukocyte Esterase Trace A (Negative) Urine WBC (Auto) Trace(0-5/hpf) (Absent) Urine RBC (Auto) Trace(0-2/hpf) (Absent) Ur Squamous Epith Cells Present A (Absent) Urine Bacteria 1+ A (Absent) Urine Glucose Negative (Negative) Urine Ascorbic Acid * A (Negative) Result Diagrams: 04/13/18 18:57 04/13/18 18:57 Lab Statement: Any lab studies that have been ordered have been reviewed, and results considered in the medical decision making process. Chest Pain Course/Dx - Course Course Of Treatment: Patient complains of mild sternal and left side CP, with palpitations 3 days. States history of same one year ago. Palpitations and CP are intermittent, random onset, simultaneous, lasts a couple minutes and then resolves. Occurs several times a day. Denies SOB, fever, cough, sore throat, N/V/D, abdominal pain, change in urine, change in BM. Denies recent decrease in endurance. Medical History is asthma. Negative family cardiac history. Nonsmoker, denies EtOH or recreational drug use. Physical exam:Chest nontender to palpation. Nonreproducible. Vital signs within normal limits. EKG unremarkable. Troponins negative. Chest x-ray negative. Chest pain resolved with Tylenol. Other than Hgb of 9.6, Labs otherwise unremarkable. Patient states primary care is aware of her long-term anemia. Denies heavy menstrual bleeding. Follow-up with primary care. - Diagnoses Provider Diagnoses: Atypical chest pain, Anemia Discharge - Sign-Out/Discharge Documenting (check all that apply): Patient Departure - Discharge Plan Condition: Stable Disposition: HOME Patient Education Materials: Chest Pain (ED), Anemia (ED) Referrals: No Primary Care Phys,NOPCP [Primary Care Provider] - [facility] [Outside] Additional Instructions: Follow-up with primary care for anemia and Holter monitor. Return to the ED for any new or worsening symptoms. - Billing Disposition and Condition Condition: STABLE Disposition: Home
[2018-04-13] MEDS ORDERED: Ibuprofen TAB* 600 MG PO ONE (21:02)
[2018-04-13 21:12] VITALS: BP 122/74
--- NOTE | 2018-04-14 07:34 | RAD ---
HISTORY: cp COMPARISONS: None VIEWS: 1: frontal AP view of the chest at 5:56 PM FINDINGS: LINES AND TUBES: None. CARDIOMEDIASTINAL SILHOUETTE: The cardiomediastinal silhouette is normal for portable technique. PLEURA: The costophrenic angles are sharp. No pleural abnormalities are noted. LUNG PARENCHYMA: The lungs are clear. ABDOMEN: The upper abdomen is clear. There is no subphrenic gas. BONES AND SOFT TISSUES: No bone or soft tissue abnormalities are noted. IMPRESSION: NO ACTIVE CARDIOPULMONARY DISEASE. R0
== END 2018-04-13 21:11 | disposition home or self-care (01) ==
LOC: ED 17:11
DX: R07.89 Other chest pain (principal); D64.9 Anemia, unspecified; R00.2 Palpitations
CPT/HCPCS: 36415; 71045; 80053; 81003; 81015; 84484; 84702; 85025; 86140; 87086; 93005; 99283; A9270-GY

== ENCOUNTER 2018-11-11 09:31 | Emergency (ER) | payer OTHER ==
--- NOTE | 2018-11-11 10:13 | ED ---
GI/ HPI - HPI Summary HPI Summary: Patient is an otherwise healthy 33-year-old female who presents to the ED with symptoms of UTI. She endorses urinary frequency, burning with urination, urgency. Denies any gross hematuria. Denies any vaginal wall pain or dyspareunia. She does endorse having some white vaginal discharge which is mild. No history of yeast infection. No history of GC chlamydia or Trichomonas. She endorses having one partner, however would like to have STD testing today. She denies any fevers, sweats, chills. Denies any vaginal bleeding. She is also requesting HIV testing on this date. She is otherwise healthy, takes no medications and denies any other symptoms at this time. Denies any suprapubic or other abdominal pain. - History of Current Complaint Chief Complaint: EDUrogenitalProblems Time Seen by Provider: 11/11/18 09:37 Stated Complaint: URINARY IRRITATION PER PT Hx Obtained From: Patient Hx Last Menstrual Period: 06/18/2017 Onset/Duration: Started Hours Ago Timing: Constant Severity: Mild Current Severity: Mild Pain Intensity: 97 - Allergy/Home Medications Allergies/Adverse Reactions: Allergies Allergy/AdvReac Type Severity Reaction Status Date / Time latex Allergy Rash Verified 11/11/18 09:34 Penicillins Allergy Hives Verified 11/11/18 09:34 shellfish derived Allergy Hives Verified 11/11/18 09:34 PMH/Surg Hx/FS Hx/Imm Hx Previously Healthy: Yes Endocrine/Hematology History: Denies: Hx Anticoagulant Therapy Respiratory History: Denies: Hx Asthma GI History: Denies: Hx Jaundice History: Denies: Hx Dialysis Sensory History: Denies: Hx Legally Blind Opthamlomology History: Denies: Hx Legally Blind Neurological History: Denies: Hx CVA - Surgical History Surgery Procedure, Year, and Place: D&C. Tubal ligation 2011 - Immunization History Hx Pertussis Vaccination: No Immunizations Up to Date: Yes Infectious Disease History: No Infectious Disease History: Denies: Traveled Outside the [place] in Last 30 Days - Family History Known Family History: Positive: Hypertension, Diabetes Negative: Cardiac Disease - Social History Occupation: Employed Full-time Lives: With Family Alcohol Use: None Hx Substance Use: No Substance Use Type: Reports: None Hx Tobacco Use: No Smoking Status (MU): Never Smoked Tobacco Review of Systems Constitutional: Negative Negative: Fever, Chills, Fatigue, Skin Diaphoresis Negative: Epistaxis, Dental Pain Negative: Chest Pain Positive: burning, dysuria, frequency, urgency Negative: Arthralgia, Myalgia Skin: Negative All Other Systems Reviewed And Are Negative: Yes Physical Exam Triage Information Reviewed: Yes Vital Signs On Initial Exam: Initial Vitals Temp Pulse Resp BP Pulse Ox 97.1 F 75 12 126/82 100 11/11/18 09:34 11/11/18 09:34 11/11/18 09:34 11/11/18 09:34 11/11/18 09:34 Vital Signs Reviewed: Yes Appearance: Positive: Well-Appearing, No Pain Distress Skin: Positive: Warm, Skin Color Reflects Adequate Perfusion Head/Face: Positive: Normal Head/Face Inspection Neck: Positive: Supple, No Lymphadenopathy Respiratory/Lung Sounds: Positive: Clear to Auscultation, Breath Sounds Present Cardiovascular: Positive: RRR, Pulses are Symmetrical in both Upper and Lower Extremities Pelvic Exam: Positive: External Exam Normal, Speculum Exam Normal, No Cerv. Motion Tender. Negative: No Masses, Active Bleeding, Blood, Cervicitis, Discharge - Patient, Tender w/ Cervical Motion, Tender Adnexa, Tender Uterus Musculoskeletal: Positive: Strength/ROM Intact Neurological: Positive: Sensory/Motor Intact, Alert, Oriented to Person Place, Time, Speech Normal Psychiatric: Positive: Affect/Mood Appropriate AVPU Assessment: Alert Diagnostics - Vital Signs Vital Signs Temp Pulse Resp BP Pulse Ox 11/11/18 09:34 97.1 F 75 12 126/82 100 - Laboratory Lab Statement: Any lab studies that have been ordered have been reviewed, and results considered in the medical decision making process. GIGU Course/Dx - Course Course Of Treatment: During this course of treatment, the patient is evaluated for UTI symptoms. She is also requesting STD testing at this time despite having only a mild amount of white vaginal discharge. Denies any malodorous discharge. Denies any hematuria, itching, burning, vaginal pain or dyspareunia. Pelvic exam shows no lesions, erythema, discharge and non- malodorous. GC, chlamydia, Trichomonas obtained. Urine obtained. UA shows UTI. Patient is placed on Bactrim twice daily 5 days. We'll call with any positive results of pelvic swabs. - Diagnoses Provider Diagnoses: UTI (urinary tract infection) Discharge - Sign-Out/Discharge Documenting (check all that apply): Patient Departure Patient Received Moderate/Deep Sedation with Procedure: No - Discharge Plan Condition: Stable Disposition: HOME Prescriptions: Sulfamethox/Trimethoprim DS* [Bactrim DS 800/160 TAB*] 1 tab PO BID #10 tab Patient Education Materials: Urinary Tract Infection in Women (ED) Referrals: No Primary Care Phys,NOPCP [Medical Doctor] - Additional Instructions: Will call with any changes/differing results. Dx. Urinary Tract Infection Drink plenty of fluids. Supplement with cranberry or lacey juice. You may also take an over the counter cranberry supplement. If you have any questions about this, you may ask your pharmacist. If your symptoms have not improved in 1-2 days, if you develop fever, sweats or chills, please go to your emergency room, or call your PCP. Antibiotics were prescribed to you. Please take as directed. Supplement with over the counter probiotics on the opposite schedule of your antibiotic to prevent secondary infections. Do not take together as they may counteract each other. - Billing Disposition and Condition Condition: STABLE Disposition: Home
[2018-11-11 10:26] LABS: Urine Appearance Cloudy; Urine Bacteria Absent (Absent); Urine Bilirubin Negative (Negative); Urine Blood Negative (Negative); Urine Color Yellow; Urine Glucose Negative (Negative); Urine Ketones Trace (Negative); Urine Nitrite Negative (Negative); Urine Protein Negative (Negative); Urine Red Blood Cell 1+(3-5/hpf) (Absent); Urine Specific Gravity 1.025 (1.010-1.030); Urine Squamous Epithelial Cell Present (Absent); Urine Urobilinogen Negative (Negative); Urine White Blood Cell 3+(>20/hpf) (Absent)
[2018-11-11 11:11] VITALS: BP 131/80
[2018-11-12 14:10] LABS: Neisseria gonorrhoeae (GC) RNA Negative (Negative)
[2018-11-12 14:16] LABS: Trichomonas vaginalis Result Negative (Negative)
== END 2018-11-11 11:10 | disposition home or self-care (01) ==
LOC: ED 09:31
DX: N39.0 Urinary tract infection, site not specified (principal)
CPT/HCPCS: 36415; 81003; 81015; 86703; 87086; 87480; 87491; 87510; 87591; 87661; 99282

== ENCOUNTER 2019-01-22 14:39 | Emergency (ER) | payer OTHER ==
[2019-01-22 15:28] LABS: ABS Eosinophils 0.1 10^3/ul (0-0.6); ABS Lymphocytes 2.1 10^3/ul (1.0-4.8); ABS Monocytes 0.4 10^3/ul (0-0.8); ABS Neutrophils 2.4 10^3/ul (1.5-7.7); Eosinophil % 1.6 %; Hematocrit 33 % (35-47); Hemoglobin 11.5 g/dL (12.0-16.0); Lymphocyte % 41.4 %; Mean Corpuscular HGB Conc 35 g/dL (31-36); Mean Corpuscular Hemoglobin 26 pg (27-31); Mean Corpuscular Volume 76 fL (80-97); Mean Platelet Volume 7.3 fL (7.4-10.4); Nucleated Red Blood Cells % 0.2; Platelet Count 423 10^3/uL (150-450); Red Blood Count 4.38 10^6 /uL (3.70-4.87); Red Cell Distribution Width 18 % (10-15); White Blood Count 5.1 10^3/uL (3.5-10.8)
[2019-01-22 15:34] LABS: INR 1.12 (0.82-1.09)
[2019-01-22 16:09] LABS: ALT 12 U/L (7-52); AST 19 U/L (13-39); Albumin 4.5 g/dL (3.2-5.2); Albumin/Globulin Ratio 1.6 (1-3); Alkaline Phosphatase 56 U/L (34-104); Anion Gap 7 mmol/L (2-11); BUN/Creatinine Ratio 11.1 (8-20); Blood Urea Nitrogen 8 mg/dL (6-24); CO2 Carbon Dioxide 28 mmol/L (22-32); Calcium 9.4 mg/dL (8.6-10.3); Chloride 105 mmol/L (101-111); EGFR African American 111.5 (>60); EGFR Non-African American 92.2 (>60); Globulin 2.9 g/dL (2-4); Glucose 91 mg/dL (70-100); Potassium 3.6 mmol/L (3.5-5.0); Sodium 140 mmol/L (135-145); Total Protein 7.4 g/dL (6.4-8.9)
[2019-01-22] MEDS ORDERED: Cyclobenzaprine TAB* 10 MG PO ONE (17:51)
[2019-01-22] MEDS ORDERED: Ketorolac INJ* 30 MG/ML 1 ML VIAL IM ONE (17:51)
[2019-01-22 17:58] LABS: C Reactive Protein 3.25 mg/L (<8.01)
[2019-01-22 18:05] LABS: HCG Pregnancy < 0.60 mIU/mL
--- NOTE | 2019-01-22 18:26 | ED ---
HPI Chest Pain - HPI Summary HPI Summary: 33 year-old female presents with right-sided chest pain for the past couple days. She states radiates to the back. States it feels very sharp. She denies any shortness of breath. No bowel pain. No neck pain. Pain isn't radiating anywhere else. Has taken ibuprofen without any relief. Denies any cough. No recent illness. Has no medical conditions. No family history of cardiac disease. Not on control. Denies any family history of blood clots. Patient has no pain when sitting but when tries to move she developed the pain. - History of Current Complaint Chief Complaint: EDChestPainROMI Time Seen by Provider: 01/22/19 17:07 Hx Last Menstrual Period: 06/18/2017 Pain Intensity: 8 - Allergy/Home Medications Allergies/Adverse Reactions: Allergies Allergy/AdvReac Type Severity Reaction Status Date / Time latex Allergy Rash Verified 01/22/19 14:48 Penicillins Allergy Hives Verified 01/22/19 14:48 shellfish derived Allergy Hives Verified 01/22/19 14:48 Home Medications: Home Medications Ferrous Sulfate TAB* 325 mg PO BID 01/22/19 [History Confirmed 01/22/19] PMH/Surg Hx/FS Hx/Imm Hx Endocrine/Hematology History: Denies: Hx Anticoagulant Therapy Respiratory History: Reports: Hx Asthma GI History: Denies: Hx Jaundice History: Denies: Hx Dialysis Sensory History: Denies: Hx Legally Blind Opthamlomology History: Denies: Hx Legally Blind Neurological History: Denies: Hx CVA - Surgical History Surgery Procedure, Year, and Place: D&C. Tubal ligation 2011 Infectious Disease History: No Infectious Disease History: Denies: Traveled Outside the [place] in Last 30 Days - Family History Known Family History: Positive: Hypertension, Diabetes Negative: Cardiac Disease - Social History Alcohol Use: None Hx Substance Use: No Substance Use Type: Reports: None Hx Tobacco Use: No Smoking Status (MU): Never Smoked Tobacco Review of Systems Negative: Fever Positive: Chest Pain Negative: Shortness Of Breath, Cough All Other Systems Reviewed And Are Negative: Yes Physical Exam Triage Information Reviewed: Yes Vital Signs On Initial Exam: Initial Vitals Temp Pulse Resp BP Pulse Ox 98.2 F 76 16 137/69 100 01/22/19 14:44 01/22/19 14:44 01/22/19 14:44 01/22/19 14:44 01/22/19 14:44 Vital Signs Reviewed: Yes Appearance: Positive: Well-Appearing Skin: Positive: Warm, Dry Head/Face: Positive: Normal Head/Face Inspection Eyes: Positive: Normal, Conjunctiva Clear ENT: Positive: Pharynx normal Respiratory/Lung Sounds: Positive: Clear to Auscultation, Breath Sounds Present , Other - tenderness over right upper chest and back Cardiovascular: Positive: Normal, RRR Abdomen Description: Positive: Nontender, Soft Bowel Sounds: Positive: Present Musculoskeletal: Positive: Normal Neurological: Positive: Normal Psychiatric: Positive: Normal Diagnostics - Vital Signs Vital Signs Temp Pulse Resp BP Pulse Ox 01/22/19 16:39 98.5 F 65 16 160/93 100 01/22/19 14:44 98.2 F 76 16 137/69 100 - Laboratory Lab Results: Lab Results 01/22/19 01/22/19 01/22/19 Range/Units 15:18 15:18 15:18 WBC 5.1 (3.5-10.8) 10^3/uL RBC 4.38 (3.70-4.87) 10^6 /uL Hgb 11.5 L (12.0-16.0) g/dL Hct 33 L (35-47) % MCV 76 L (80-97) fL MCH 26 L (27-31) pg MCHC 35 (31-36) g/dL RDW 18 H (10-15) % Plt Count 423 (150-450) 10^3/uL MPV 7.3 L (7.4-10.4) fL Neut % (Auto) 47.8 % Lymph % (Auto) 41.4 % [place] % (Auto) 8.4 % Eos % (Auto) 1.6 % Baso % (Auto) 0.8 % Absolute Neuts (auto) 2.4 (1.5-7.7) 10^3/ul Absolute Lymphs (auto) 2.1 (1.0-4.8) 10^3/ul Absolute Monos (auto) 0.4 (0-0.8) 10^3/ul Absolute Eos (auto) 0.1 (0-0.6) 10^3/ul Absolute Basos (auto) 0.0 (0-0.2) 10^3/ul Absolute Nucleated RBC 0.0 10^3/ul Nucleated RBC % 0.2 INR (Anticoag Therapy) 1.12 H (0.82-1.09) D-Dimer, Quantitative < 200 (Less Than 230) ng/mL Sodium 140 (135-145) mmol/L Potassium 3.6 (3.5-5.0) mmol/L Chloride 105 (101-111) mmol/L Carbon Dioxide 28 (22-32) mmol/L Anion Gap 7 (2-11) mmol/L BUN 8 (6-24) mg/dL Creatinine 0.72 (0.51-0.95) mg/dL Est GFR ( Amer) 111.5 (>60) Est GFR (Non-Af Amer) 92.2 (>60) BUN/Creatinine Ratio 11.1 (8-20) Glucose 91 (70-100) mg/dL Calcium 9.4 (8.6-10.3) mg/dL Total Bilirubin 0.30 (0.2-1.0) mg/dL AST 19 (13-39) U/L ALT 12 (7-52) U/L Alkaline Phosphatase 56 (34-104) U/L Troponin I 0.00 (<0.04) ng/mL C-Reactive Protein 3.25 (<8.01) mg/L Total Protein 7.4 (6.4-8.9) g/dL Albumin 4.5 (3.2-5.2) g/dL Globulin 2.9 (2-4) g/dL Albumin/Globulin Ratio 1.6 (1-3) Beta HCG, Quant < 0.60 mIU/mL Result Diagrams: 01/22/19 15:18 01/22/19 15:18 Lab Statement: Any lab studies that have been ordered have been reviewed, and results considered in the medical decision making process. - Radiology chest Radiology Interpretation Completed By: ED Physician Summary of Radiographic Findings: no active disease - EKG No standard instances Cardiac Rate: NL EKG Rhythm: Sinus Rhythm Summary of EKG Findings: sinus rhythm Re-Evaluation - Re-Evaluation First Eval Re-Evaluation Time: 18:54 Change: Improved Comment: feeling better Chest Pain Course/Dx - Course Course Of Treatment: 33 year-old female presents with right-sided chest pain for the past couple days. She states radiates to the back. States it feels very sharp. She denies any shortness of breath. No bowel pain. No neck pain. Pain isn't radiating anywhere else. Has taken ibuprofen without any relief. Denies any cough. No recent illness. Has no medical conditions. No family history of cardiac disease. Not on control. Denies any family history of blood clots. Patient has no pain when sitting but when tries to move she developed the pain. On exam has reproducible chest pain and right-sided chest and back. EKG shows sinus rhythm. Troponin is 0. D-dimer is negative. White blood count normal. CRP normal. Discussed likely muscular. pain improved with toradol and flexeril. We'll place on a course of Flexeril and told to continue ibuprofen. Patient understands agrees plan. - Chest Pain Differential Diagnosis/HQI/PQRI: ACS, Chest Wall, Pulmonary Embolism - Diagnoses Provider Diagnoses: Atypical chest pain Discharge - Sign-Out/Discharge Documenting (check all that apply): Patient Departure Patient Received Moderate/Deep Sedation with Procedure: No - Discharge Plan Condition: Good Disposition: HOME Prescriptions: Cyclobenzaprine TAB* [Flexeril 10 MG TAB*] 10 mg PO TID PRN #21 tab PRN Reason: Pain Patient Education Materials: Chest Wall Pain (ED) Referrals: Leana Winston MD [Primary Care Provider] - Additional Instructions: Take muscle relaxers three times a day Use ibuprofen or Tylenol for pain every 6 hours Follow up with primary within 5 days Return to ED if develop any new or worsening symptoms - Billing Disposition and Condition Condition: GOOD Disposition: Home
[2019-01-22 19:32] VITALS: BP 120/71
== END 2019-01-22 19:31 | disposition home or self-care (01) ==
LOC: ED 14:39
DX: R07.89 Other chest pain (principal); Z88.0 Allergy status to penicillin; Z91.040 Latex allergy status
CPT/HCPCS: 36415; 71045; 80053; 84484; 84702; 85025; 85379; 85610; 86140; 93005; 96372; 99282; A9270-GY; J1885